=== PATIENT | female | born 1980 | race Caucasian/White ===

== ENCOUNTER 2017-02-16 23:20 | Inpatient (IN) | payer OTHER ==
[~2017-02-16] VITALS: Ht 162.6 cm; Wt 64.0 kg
[2017-02-17 00:33] LABS: BASOPHIL % 0.2 % (0-2); PLATELET COUNT 284 x10^3mcL (130-400); RED CELL DISTRIBUTION WIDTH 12.7 % (11.5-14.5)
[2017-02-17 00:36] LABS: CALCIUM 9.4 mg/dL (8.5-10.1); CREATININE SERUM 1.2 mg/dL (0.6-1.0); POTASSIUM SERUM 4.1 mmol/L (3.5-5.1)
[2017-02-17 00:40] LABS: BILIRUBIN TOTAL 0.2 mg/dL (0.20-1.00); TOTAL PROTEIN, SERUM 7.4 g/dL (6.4-8.2)
[2017-02-17 00:41] LABS: ALBUMIN 3.3 g/dL (3.4-5.0)
[2017-02-17 01:14] LABS: UA SPECIFIC GRAVITY <=1.005 (1.005-1.035); microscopic required? YES; urine erythrocyte 1+ (NEGATIVE)
[2017-02-17] MEDS ORDERED: PREDNISONE5 MG PO (02:46)
[2017-02-17] MEDS ORDERED: OMEPRAZOLE40 M1 PO (02:47)
[2017-02-17] MEDS ORDERED: AMBIEN10 MG PO (02:47)
[2017-02-17] MEDS ORDERED: MAG PO (02:48)
[2017-02-17] MEDS ORDERED: AMLODIPINE BES2.5 M1 PO (02:48)
[2017-02-17] MEDS ORDERED: CEL250 PO (02:48)
[2017-02-17] MEDS ORDERED: NOVAPLUS TACROLI1 MG PO (02:49)
[2017-02-17] MEDS ORDERED: NATURE'S BLEND F1 MG PO (02:50)
[2017-02-17] MEDS ORDERED: LABETALOL HYDR300 MG PO (02:50)
[2017-02-17] MEDS ORDERED: ZETIA10 M1 PO (02:51)
[2017-02-17] MEDS ORDERED: TAMSULOSIN HYD0.4 M1 PO (02:51)
[2017-02-17 03:20] VITALS: BP 127/77
[2017-02-17 03:20] LABS: CHOLESTEROL/HDL RATIO 3.4; MAGNESIUM 1.6 mg/dL (1.8-2.4); PHOSPHOROUS 3.2 mg/dL (2.5-4.9)
[2017-02-17 03:27] LABS: AMPHETAMINE QUAL UR NONE DETECTED (NEG <=1000)
[2017-02-17 03:28] LABS: T3 TOTAL 1.24 ng/mL
[2017-02-17 03:58] LABS: FREE T4 1.02 ng/dL (0.76-1.46); T4(THYROXINE) 9.3 ug/dL (4.7-13.3)
[2017-02-17 04:03] VITALS: BP 125/80
[2017-02-17 09:40] VITALS: BP 129/78
[2017-02-17 14:27] VITALS: BP 105/60
[2017-02-17 17:15] VITALS: BP 143/89
[2017-02-17 20:41] VITALS: BP 121/72
[2017-02-18 05:36] VITALS: BP 144/84
[2017-02-18 06:20] LABS: BASOPHIL % 0.3 % (0-2); PLATELET COUNT 264 x10^3mcL (130-400); RED CELL DISTRIBUTION WIDTH 12.5 % (11.5-14.5)
[2017-02-18 06:41] LABS: CALCIUM 8.8 mg/dL (8.5-10.1); CARBON DIOXIDE 24.1 mmol/L (21-32); CHLORIDE SERUM 105 mmol/L (98-107); GFR1 > 60 mL/min; GLUCOSE SERUM 84 mg/dL (74-106); MAGNESIUM 1.3 mg/dL (1.8-2.4); PHOSPHOROUS 3.1 mg/dL (2.5-4.9); POTASSIUM SERUM 3.8 mmol/L (3.5-5.1); SODIUM SERUM 138 mmol/L (136-145)
[2017-02-18 09:19] VITALS: BP 140/67
[2017-02-18 13:54] VITALS: BP 113/72
[2017-02-18 17:07] VITALS: BP 127/77
[2017-02-18 21:48] VITALS: BP 133/88
[2017-02-19 06:07] LABS: BASOPHIL % 0.3 % (0-2); PLATELET COUNT 276 x10^3mcL (130-400); RED CELL DISTRIBUTION WIDTH 12.7 % (11.5-14.5)
[2017-02-19 06:17] LABS: CALCIUM 8.5 mg/dL (8.5-10.1); CARBON DIOXIDE 24.9 mmol/L (21-32); CHLORIDE SERUM 105 mmol/L (98-107); GFR1 > 60 mL/min; GLUCOSE SERUM 87 mg/dL (74-106); MAGNESIUM 2.2 mg/dL (1.8-2.4); POTASSIUM SERUM 3.9 mmol/L (3.5-5.1); SODIUM SERUM 139 mmol/L (136-145)
[2017-02-19 06:24] VITALS: BP 144/82
[2017-02-19 09:28] VITALS: BP 123/68
[2017-02-19 10:01] VITALS: BP 123/68
[2017-02-19] MEDS ORDERED: KEFLEX500 M1 PO (10:07)
[2017-02-19] MEDS ORDERED: LAC PO (10:10)
[2017-02-19] MEDS ORDERED: CEF250 PO (10:11)
== END 2017-02-19 13:00 | disposition home or self-care (01) | DRG 690 ==
LOC: ED 23:20 → DU 02-17 02:38 → MU 02-17 02:38 → DU 02-17 03:22 → MU 02-17 15:33
PROVIDERS: Emergency Medicine; Family Medicine; Internal Medicine Nephrology; ADMIT Family Medicine
DX: N12 Tubulo-interstitial nephritis, not specified as acute or chronic (principal); E44.0 Moderate protein-calorie malnutrition; Z94.0 Kidney transplant status; N17.0 Acute kidney failure with tubular necrosis; R31.9 Hematuria, unspecified; E83.42 Hypomagnesemia; J45.909 Unspecified asthma, uncomplicated; E78.1 Pure hyperglyceridemia; Z68.24 Body mass index [BMI] 24.0-24.9, adult; Z90.2 Acquired absence of lung [part of]
CPT/HCPCS: 51610; 80307; 83880; 84439; 86644; 86645; G0480; J0696; J2270; J2405; J3475; J7030; J7507; J7512; J7517; J7620; J7626; Q0092; Q9958

== ENCOUNTER 2017-05-10 11:19 | Emergency (ER) | payer OTHER ==
[~2017-05-10] VITALS: Ht 149.9 cm; Wt 63.7 kg
[~2017-05-10 11:19] MED LIST: AMBIEN10 MG PO; AMLODIPINE BES2.5 M1 PO; CEF250 PO; CEL250 PO; KEFLEX500 M1 PO; LABETALOL HYDR300 MG PO; LAC PO; MAG PO; NATURE'S BLEND F1 MG PO; NOVAPLUS TACROLI1 MG PO; OMEPRAZOLE40 M1 PO; PREDNISONE5 MG PO; TAMSULOSIN HYD0.4 M1 PO; ZETIA10 M1 PO
[2017-05-10 12:38] VITALS: BP 126/85
== END 2017-05-10 12:38 | disposition home or self-care (01) ==
LOC: ED 11:19
DX: M72.2 Plantar fascial fibromatosis (principal); Z88.8 Allergy status to other drugs, medicaments and biological substances; Z79.899 Other long term (current) drug therapy

== ENCOUNTER 2017-05-17 09:05 | Emergency (ER) | payer OTHER ==
[2017-05-17 10:49] LABS: microscopic required? YES; urine erythrocyte TRACE (NEGATIVE)
[2017-05-17 11:01] LABS: BASOPHIL % 0.4 % (0-2); PLATELET COUNT 272 x10^3mcL (130-400)
[2017-05-17 11:05] LABS: CALCIUM 9.1 mg/dL (8.5-10.1); CARBON DIOXIDE 22.4 mmol/L (21-32); CREATININE SERUM 1.3 mg/dL (0.6-1.0); POTASSIUM SERUM 3.5 mmol/L (3.5-5.1)
[2017-05-17 11:14] LABS: BILIRUBIN TOTAL 0.6 mg/dL (0.20-1.00); C REACTIVE PROTEIN 2.5 mg/dL (<=0.9); TOTAL PROTEIN, SERUM 7.3 g/dL (6.4-8.2)
[2017-05-17 11:22] LABS: CK-MB 0.6 ng/mL (0-3.6)
[2017-05-17 13:45] VITALS: BP 125/78
== END 2017-05-17 13:45 | disposition home or self-care (01) ==
LOC: ED 09:05
PROVIDERS: Specialist
DX: N39.0 Urinary tract infection, site not specified (principal); M54.42 Lumbago with sciatica, left side; K21.9 Gastro-esophageal reflux disease without esophagitis; I10 Essential (primary) hypertension; E11.9 Type 2 diabetes mellitus without complications; Z94.9 Transplanted organ and tissue status, unspecified
CPT/HCPCS: 83880; J0696; J1885

== ENCOUNTER 2017-11-20 20:52 | Emergency (ER) | payer OTHER ==
[~2017-11-20] VITALS: Ht 149.9 cm; Wt 65.3 kg
[2017-11-20 20:58] VITALS: Ht 149.9 cm; Wt 65.3 kg
[2017-11-20 22:23] VITALS: BP 143/88
== END 2017-11-20 22:23 | disposition home or self-care (01) ==
LOC: ED 20:52
DX: N39.0 Urinary tract infection, site not specified (principal); R10.30 Lower abdominal pain, unspecified; Z94.0 Kidney transplant status; Z88.8 Allergy status to other drugs, medicaments and biological substances
CPT/HCPCS: J0696

== ENCOUNTER 2019-07-11 01:25 | Emergency (ER) | payer OTHER ==
[~2019-07-11] VITALS: Ht 149.9 cm; Wt 60.3 kg
[2019-07-11 01:34] VITALS: Ht 149.9 cm; Wt 60.3 kg
[2019-07-11 02:57] LABS: BASOPHIL % 0.4 % (0-2); PLATELET COUNT 334 x10^3mcL (130-400); RED CELL DISTRIBUTION WIDTH 12.7 % (11.5-14.5)
[2019-07-11 03:23] LABS: CALCIUM 9.1 mg/dL (8.5-10.1); CARBON DIOXIDE 19.9 mmol/L (21-32); CREATININE SERUM 2.8 mg/dL (0.6-1.0); POTASSIUM SERUM 4.3 mmol/L (3.5-5.1)
[2019-07-11 03:28] LABS: BILIRUBIN TOTAL 0.41 mg/dL (0.20-1.00); TOTAL PROTEIN, SERUM 7.6 g/dL (6.4-8.2)
[2019-07-11 06:16] VITALS: BP 124/75
== END 2019-07-11 06:16 | disposition home or self-care (01) ==
LOC: ED 01:25
DX: R10.816 Epigastric abdominal tenderness (principal); R11.2 Nausea with vomiting, unspecified; Z98.890 Other specified postprocedural states; Z88.1 Allergy status to other antibiotic agents; Z88.8 Allergy status to other drugs, medicaments and biological substances
CPT/HCPCS: J2270; J2405; J7030